=== PATIENT | female | born 1990 | race Caucasian/White ===

== ENCOUNTER 2021-06-24 23:54 | Emergency (ER) | payer OTHER, SELFPAY ==
[2021-06-25 01:22] VITALS: BP 156/87; PULSE 87; RESP 18; TEMP 37.2; O2SAT 98
--- NOTE | 2021-06-25 03:34 | PC.NURSE ---
PT REPORTS FEELING BETTER STATING SHE WANTS TO LEAVE. MD DAMIAN NOTIFIED. PT HAS NOT YET BEEN EVALUATED BY .
--- NOTE | 2021-06-25 04:03 | ED_ITS ---
HPI - Dental/Oral General Chief complaint: Dental/Oral Stated complaint: dental pain/eye swelling Time Seen by Provider: 06/25/21 00:42 Source: patient Mode of arrival: ambulatory History of Present Illness HPI Narrative: 30-year-old female who presents with acute tooth pain after having temporary cap placed on a tooth that had questionable nerve exposure and developed severe pain this afternoon that did not respond well to Tylenol and i buprofen. The pain has since resolved while waiting in the emergency room waiting area and patient was also somewhat concerned about noted bilateral eye swelling that was not associated with an allergic response and that to she states has gradually improved. Related Data Allergies Allergy/AdvReac Type Severity Reaction Status Date / Time No Known Allergies Allergy Unverified 06/28/20 19:39 [No Known Allergies*] Review of Systems Review of Systems: Pertinent positives and negatives as stated in HPI 10 point review of systems is otherwise negative. PMFSH Past Medical History Source: nursing notes reviewed Medical History No known health problems Social History Social History Advance Directives: No Advance Directives Information Provided: No Patient : No Physical Exam Vital Signs: Vital Signs: Last Vital Signs Temp 99.0 F 06/25/21 01:22 Pulse 87 06/25/21 01:22 Resp 18 06/25/21 01:22 BP 156/87 H 06/25/21 01:22 Pulse Ox 98 06/25/21 01:22 Body Mass Index 30.0 VITAL SIGNS: Reviewed. GENERAL: Well developed, well nourished, in no acute distress. HEAD: Normocephalic/atraumatic, EYES: PERRLA, EOMI, mild bilateral edema without conjunctival injection or purulence drainage OROPHARYNX: no oral lesions noted, posterior pharynx clear NECK: Supple, no adenopathy LUNGS: Normal breath sounds. SpO2<98> CARDIOVASCULAR: Regular rate and rhythm without noted murmurs ABDOMEN: Soft, non-tender, non-distended with bowel sounds. NEUROLOGIC: Alert and oriented x 4. Course Course Course Narrative: 30-year-old female with history and clinical presentation consistent with nerve pain and doubt abscess or infection. She is currently without pain but was provided with topical pain relief and will follow up with her dentist this morning for discussion regarding her dental pain. She is otherwise hemodynamically stable and will be discharged. Discharge Plan Discharge Clinical Impression: Toothache Patient Disposition: Home, Self-Care Instructions: Toothache (ED) Additional Instructions: 1. Tylenol 1000 mg, orally, every 6 hours as needed for pain control. Do not exceed 4000 mg within 24 hours. 2. Ibuprofen 400 mg, orally with milk or food, every 6 hours as needed for pain control. You can take this medication with the Tylenol as it will improve pain relief. 3. Use the topical medication you have been provided for pain that exceeds your Tylenol/ibuprofen use. 4. Please follow-up with your dentist this morning. Return to the ER for acute worsening of symptoms. Referrals: Physician,Unknown [Primary Care Provider] - 2 days
== END 2021-06-25 04:26 | disposition home or self-care (01) ==
PROVIDERS: Emergency Provider Student in an Organized Health Care Education/Training Program
DX: K02.9 Dental caries, unspecified (principal)
CPT/HCPCS: 99283